=== PATIENT | male | born 1990 | race African-American/Black ===

== ENCOUNTER 2019-03-21 18:50 | Inpatient (IN) | payer OTHER ==
[2019-03-21 19:24] VITALS: BMI 23.1
[2019-03-21] MEDS ORDERED: MELATONIN 5 MG TABLETS PO PRN (22:00)
--- NOTE | 2019-03-21 22:31 | HP ---
COWS - Scale Resting Pulse: 0= [place] 80 or Below Sweatin= No chills or Flushing Restless Observation: 0= Sits Still Pupil Size: 0= Normal to Room Light Bone or Joint Aches: 0= None Runny Nose/ Eye Tearin= None GI Upset > 30mins: 0= None Tremor Observation: 0= None Yawning Observation: 0= None Anxiety or Irritability: 0= None Goose Flesh Skin: 0=Smooth Skin COWS Score: 0 CIWA Score - Admission Criteria OASAS Guidelines: Admission for Medically Managed Detox: Requires at least one of the followin. CIWA greater than 12 2. Seizures within the past 24 hours 3. Delirium tremens within the past 24 hours 4. Hallucinations within the past 24 hours 5. Acute intervention needed for co occurring medical disorder 6. Acute intervention needed for co occurring psychiatric disorder 7. Severe withdrawal that cannot be handled at a lower level of care (continued vomiting, continued diarrhea, abnormal vital signs) requiring intravenous medication and/or fluids 8. Admission ROS [facility] Chief Complaint: seeking heroin txment Allergies/Adverse Reactions: Allergies Allergy/AdvReac Type Severity Reaction Status Date / Time No Known Allergies Allergy Verified 03/21/19 19:19 History of Present Illness: HERE FOR HEROIN TXMENT. CLIENT IS REFERRED BY [facility] AFTER SEEKING DETOX BUT NO BEDS. PRESENTS WITH C/O INTERMITTENT SWEATS BUT DENIES ANY OTHER COMPLAINTS. UTOX NEG FOR OPI. CLIENT STATES LAST USED 2 DAYS AGO. HE ONLY USES HEROIN 3 X A WEEK APPROX 3 BAGS VIA SNIFF. DENIES IVDU. HE ALSO REPORTS PCP AND [facility]IZA DUST ABUSE. UTOX + FOR THC. DENIES HX/O DRUG OVERDOSE, BLACK OUTS, SEIZURES. DENIES ANY SIGNIFICANT CLEAN TIME. LIVES WITH FAMILY, UNEMPLOYED-HRA, DENIES LEGALS Exam Limitations: No Limitations - Ebola screening Have you traveled outside of the country in the last 21 days: No (N) Have you had contact with anyone from an Ebola affected area: No Have you been sick,other than usual withdrawal symptoms: No Do you have a fever: No - Review of Systems Constitutional: Chills, Loss of Appetite EENT: reports: No Symptoms Reported Respiratory: reports: No Symptoms reported Cardiac: reports: No Symptoms Reported GI: reports: Poor Appetite : reports: No Symptoms Reported Musculoskeletal: reports: No Symptoms Reported Integumentary: reports: No Symptoms Reported Neuro: reports: No Symptoms reported Endocrine: reports: No Symptoms Reported Hematology: reports: No Symptoms Reported Psychiatric: reports: Orientated x3, Depressed (DENIES SI) Other Systems: Reviewed and Negative Patient History - Patient Medical History Hx Anemia: No Hx Asthma: No Hx Chronic Obstructive Pulmonary Disease (COPD): No Hx Cancer: No Hx Cardiac Disorders: No Hx Congestive Heart Failure: No Hx Hypertension: No Hx Hypercholesterolemia: No Hx Pacemaker: No HX Cerebrovascular Accident: No Hx Seizures: No Hx Dementia: No Hx Diabetes: No Hx Gastrointestinal Disorders: No Hx Liver Disease: No Hx Genitourinary Disorders: No Hx Sexually Transmitted Disorders: No Hx Renal Disease (ESRD): No Hx Thyroid Disease: No Hx Human Immunodeficiency Virus (HIV): No Hx Hepatitis C: No Hx Depression: Yes Hx Suicide Attempt: No Hx Bipolar Disorder: No Hx Schizophrenia: Yes (PARANOID) Other Medical History: PTSD, EMOTIONALLY DISTURBED - Patient Surgical History Past Surgical History: No - PPD History Previous Implant?: Yes Documented Results: Negative w/o proof Implanted On Prior [facility] Admission?: No PPD to be Administered?: Yes - Smoking Cessation Smoking history: Current every day smoker Have you smoked in the past 12 months: Yes Aproximately how many cigarettes per day: 60 Cigars Per Day: 0 Hx Chewing Tobacco Use: No Initiated information on smoking cessation: Yes 'Breaking Loose' booklet given: 03/21/19 - Substance & Tx. History Hx Alcohol Use: No Hx Substance Use: Yes Substance Use Type: Heroin (UTOX NEG), Marijuana, Tranquilizers (PCC-UTOX NEG) Hx Substance Use Treatment: Yes ([facility]) - Substances abused Heroin Substance route: Inhalation Frequency: 3-6 times per week (3X WEEK) Amount used: 3 BAGS Age of first use: 26 Date of last use: 03/19/19 Other Other (specify): DUST/PCP Substance route: Smoking Frequency: 3-6 times per week (4 X WEEK) Amount used: $60/DAY Age of first use: 26 Date of last use: 03/19/19 Marijuana/Hashish Substance route: Smoking Frequency: Daily Amount used: $40 Age of first use: 15 Date of last use: 03/20/19 Admission Physical Exam [facility] - Vital Signs Vital Signs: Vital Signs - 24 hr 03/21/19 18:58 Temperature 98.1 F Pulse Rate 71 Respiratory 18 Rate Blood Pressure 146/91 - Physical General Appearance: Yes: Other (DEPESSED AFFECT) HEENTM: Yes: EOMI, Normocephalic, Normal Voice, BRYANT, Pharynx Normal Respiratory: Yes: Chest Non-Tender, Lungs Clear, Normal Breath Sounds, No Respiratory Distress, No Accessory Muscle Use Neck: Yes: No masses,lesions,Nodules, Supple, Trachea in good position Breast: Yes: Breasts Symetrical Cardiology: Yes: Regular Rhythm, Regular Rate, S1, S2 Abdominal: Yes: Normal Bowel Sounds, Non Tender, Flat, Soft Genitourinary: Yes: Within Normal Limits Back: Yes: Normal Inspection Musculoskeletal: Yes: full range of Motion, Gait Steady Extremities: Yes: Normal Capillary Refill, Normal Range of Motion, Non-Tender, Tremors Neurological: Yes: Fully Oriented, Alert, Motor Strength 5/5, Depressed Affect Integumentary: Yes: Cold (COOL), Clammy (PALMS) Lymphatic: Yes: Within Normal Limits - Diagnostic (1) Opioid abuse, uncomplicated Current Visit: Yes Status: Acute (2) PCP abuse Current Visit: Yes Status: Acute (3) Cannabis dependence, uncomplicated Current Visit: Yes Status: Acute (4) Psychiatric disorder Current Visit: Yes Status: Chronic Comment: PTSD, DEPRESSION, EMOTIONALLY DISTURBED, PANIC ATTACKS (5) Depressed affect Current Visit: Yes Status: Acute Cleared for Admission [facility] - Detox or Rehab Detox Regimen/Protocol: Not Applicable Claeared for Rehab Admission: Yes Breathalyzer - Breathalyzer Breathalyzer: 0 Urine Drug Screen - Test Device Lot number: [id number] Expiration date: 10/27/20 - Control Is test valid?: Yes - Results Drug screen NEGATIVE: No Urine drug screen results: THC-Marijuana Inpatient Rehab Admission - Rehab Decision to Admit Inpatient rehab admission?: Yes - Initial Determination Are CD services needed?: Yes Free of communicable disease: Yes Not in need of hospitalization: Yes - Rehab Admission Criteria Previous failed treatment: Yes Poor recovery environment: Yes Comorbidities: Yes Lacks judgement: No Patient is meeting Inpatient Rehab admission criteria:: Yes
[2019-03-21] MEDS ORDERED: MENTHOL/PHENOL 1 EACH UD MM PRN (22:42)
[2019-03-21] MEDS ORDERED: MAGNESIUM CITRATE 300 ML BOTTLE PO PRN (22:42)
[2019-03-21] MEDS ORDERED: ACETAMINOPHEN 325 MG TABLET (FP) PO PRN (22:42)
[2019-03-21] MEDS ORDERED: IBUPROFEN 400 MG TABLET (FP) PO PRN (22:42)
[2019-03-21] MEDS ORDERED: MAGNESIUM HYDROX 2400MG/30ML ORAL SUSPENSION 30 ML CUP PO PRN (22:42)
[2019-03-21] MEDS ORDERED: NICOTINE POLACRILEX 4 MG GUM BC PRN (22:42)
[2019-03-21] MEDS ORDERED: guaiFENesin 200 MG/10 ML 10 ML UNIT-DOSE CUPS PO PRN (22:42)
[2019-03-21] MEDS ORDERED: LOPERAMIDE HCL 2 MG CAPSULE PO PRN (22:42)
[2019-03-21] MEDS ORDERED: MAG HYDROX/AL HYDROX/SIMETH 30 ML UNIT-DOSE CUP PO PRN (22:42)
[2019-03-21] MEDS ORDERED: P-EPHED 60MG/TRIPROLIDI 2.5MG TABLET PO PRN (22:42)
[2019-03-21] MEDS ORDERED: cloNIDine HCL 0.1 MG TABLET PO PRN (22:43)
[2019-03-22] MEDS ORDERED: TUBERCULIN PPD 5 TU/0.1ML VIAL ID ONE (00:35)
[2019-03-22 06:59] VITALS: BP 125/83; PULSE 63; TEMP 97.9
--- NOTE | 2019-03-22 07:06 | CONSULT ---
[facility] Psychiatric Consult - Data Date of interview: 03/22/19 Admission source: [facility] Identifying data: Mr Jay is a 28 yeard old male, unemplooyed receving public assistance with history of Paranoid Schizophrenia, PTSD an Polysubsatnce use referred from [facility] on 03/21/19 for admission to inpatient rehabiitation for heroin, cannabis and phencyclidine Substance Abuse History: Reports history of heroin, marijuana and pcp use. Refer to addiction counselor's summary for further information Medical History: Unremarkable. Smokes cigarettes 3 ppd
[2019-03-22] MEDS: PRENATAL VITAMINS W/ FOLIC ACID TABLET (FP) PO SCH (10:06)
[2019-03-22] MEDS: NICOTINE 21 MG/24 HOURS TOPICAL PATCH TD SCH (10:06)
--- NOTE | 2019-03-22 10:17 | EKG ---
Test Reason : Blood Pressure : / mmHG Vent. Rate : 081 BPM Atrial Rate : 081 BPM P-R Int : 128 ms QRS Dur : 084 ms QT Int : 364 ms P-R-T Axes : 088 073 041 degrees QTc Int : 422 ms NORMAL SINUS RHYTHM NORMAL ECG NO PREVIOUS ECGS AVAILABLE Confirmed by Joel Naqvi MD ([id number]) on 03/22/2019 10:16:58 AM Referred By: Jamel Larios Confirmed By:Joel Naqvi MD
[2019-03-22 10:22] LABS: HEMATOCRIT 44.1 % (35.4-49); HEMOGLOBIN 14.4 GM/dL (11.7-16.9); MCH 31.9 pg (25.7-33.7); MCHC 32.6 g/dl (32.0-35.9); MEAN CELL VOLUME 97.8 fl (80-96); MEAN PLT VOLUME 9.8 fl (7.5-11.1); PLATELET COUNT 134 K/MM3 (134-434); RBC 4.51 M/mm3 (4.00-5.60); RDW 12.8 % (11.9-15.9); WHITE BLOOD COUNT 5.9 K/mm3 (4.0-10.0)
[2019-03-22 10:36] LABS: URINE APPEARANCE CLEAR; URINE BILIRUBIN NEGATIVE (NEGATIVE); URINE COLOR YELLOW; URINE GLUCOSE (UA) NEGATIVE (NEGATIVE); URINE KETONE TRACE (NEGATIVE); URINE LEUK ESTERASE NEGATIVE (NEGATIVE); URINE NITRITE NEGATIVE (NEGATIVE); URINE PROTEIN NEGATIVE (NEGATIVE); URINE UROBILINOGEN 0.2 mg/dL (0.2-1.0)
[2019-03-22 11:42] LABS: ALBUMIN 3.9 g/dl (3.4-5.0); BILIRUBIN,TOTAL 0.4 mg/dL (0.2-1); BLOOD UREA NITROGEN 18.1 mg/dL (7-18); CALCIUM 9.6 mg/dL (8.5-10.1); CREATININE 1.1 mg/dL (0.55-1.3); POTASSIUM 3.5 mmol/L (3.5-5.1); TOT PROT 7.4 g/dl (6.4-8.2)
[2019-03-22] MEDS: hydrOXYzine PAMOATE 50 MG CAPSULE (FP) PO PRN (19:42)
[2019-03-22] MEDS ORDERED: THIAMINE HCL 100 MG TABLET (FP) PO SCH (22:00)
[2019-03-23] MEDS: NICOTINE 21 MG/24 HOURS TOPICAL PATCH TD SCH (10:44)
[2019-03-23] MEDS: PRENATAL VITAMINS W/ FOLIC ACID TABLET (FP) PO SCH (10:44)
[2019-03-23] MEDS: hydrOXYzine PAMOATE 50 MG CAPSULE (FP) PO PRN (17:42)
--- NOTE | 2019-03-23 19:13 | DS ---
[facility] Rehab Discharge Summary - [facility] Rehab Discharge Summary Admission Date: 03/21/19 Discharge Date: 03/23/19 - History Additional Comments: Patient reports that he is leaving against medical advice. He reports hat he wants to go to his family because he miss them. Risks and consequences of his action reinforced. patient verbalized understanding of instructions.he is medical stable and his vital sins are stable. Pertinent Past History: Opioid abuse, cannabis dependence, PCP abuse and depression - Discharge Physical Exam Vital Signs: Vital Signs Temperature 97.9 F 03/22/19 06:58 Pulse Rate 63 03/22/19 06:58 Respiratory Rate 18 03/23/19 03:30 Blood Pressure 125/83 03/22/19 06:58 O2 Sat by Pulse Oximetry (%) Laboratory Last Values WBC 5.9 K/mm3 (4.0-10.0) 03/22/19 07:00 RBC 4.51 M/mm3 (4.00-5.60) 03/22/19 07:00 Hgb 14.4 GM/dL (11.7-16.9) 03/22/19 07:00 Hct 44.1 % (35.4-49) 03/22/19 07:00 MCV 97.8 fl (80-96) H 03/22/19 07:00 MCH 31.9 pg (25.7-33.7) 03/22/19 07:00 MCHC 32.6 g/dl (32.0-35.9) 03/22/19 07:00 RDW 12.8 % (11.9-15.9) 03/22/19 07:00 Plt Count 134 K/MM3 (134-434) 03/22/19 07:00 MPV 9.8 fl (7.5-11.1) 03/22/19 07:00 Sodium 140 mmol/L (136-145) 03/22/19 07:00 Potassium 3.5 mmol/L (3.5-5.1) 03/22/19 07:00 Chloride 104 mmol/L (98-107) 03/22/19 07:00 Carbon Dioxide 27 mmol/L (21-32) 03/22/19 07:00 Anion Gap 9 MMOL/L (8-16) 03/22/19 07:00 BUN 18.1 mg/dL (7-18) H 03/22/19 07:00 Creatinine 1.1 mg/dL (0.55-1.3) 03/22/19 07:00 Est GFR (CKD-EPI)AfAm 105.32 03/22/19 07:00 Est GFR (CKD-EPI)NonAf 90.87 03/22/19 07:00 Random Glucose 67 mg/dL (74-106) L 03/22/19 07:00 Calcium 9.6 mg/dL (8.5-10.1) 03/22/19 07:00 Total Bilirubin 0.4 mg/dL (0.2-1) 03/22/19 07:00 AST 21 U/L (15-37) 03/22/19 07:00 ALT 32 U/L (13-61) 03/22/19 07:00 Alkaline Phosphatase 79 U/L (45-117) 03/22/19 07:00 Total Protein 7.4 g/dl (6.4-8.2) 03/22/19 07:00 Albumin 3.9 g/dl (3.4-5.0) 03/22/19 07:00 Urine Color Yellow 03/22/19 08:39 Urine Appearance Clear 03/22/19 08:39 Urine pH 6.0 (5.0-8.0) 03/22/19 08:39 Ur Specific [place] 1.027 (1.010-1.035) 03/22/19 08:39 Urine Protein Negative (NEGATIVE) 03/22/19 08:39 Urine Glucose (UA) Negative (NEGATIVE) 03/22/19 08:39 Urine Ketones Trace (NEGATIVE) H 03/22/19 08:39 Urine Blood Negative (NEGATIVE) 03/22/19 08:39 Urine Nitrite Negative (NEGATIVE) 03/22/19 08:39 Urine Bilirubin Negative (NEGATIVE) 03/22/19 08:39 Urine Urobilinogen 0.2 mg/dL (0.2-1.0) 03/22/19 08:39 Ur Leukocyte Esterase Negative (NEGATIVE) 03/22/19 08:39 RPR Titer Nonreactive (NONREACTIVE) 03/22/19 07:00 Pertinent Admission Physical Exam Findings: Seeking admission to Rehab for Opioid, PCP and cannabis dependence - Medication Discharge Medications: Ambulatory Orders NK [No Known Home Medication] 12/23/19 - Medication-Assisted Treatment (MAT) Medication-Assisted Treatment (MAT): No - Discharge Instructions Diet, activity, other medical instructions: Diet: Activity: Other medical instructions: - Diagnosis (1) Cannabis dependence, uncomplicated Current Visit: Yes Status: Chronic (2) Depressed affect Current Visit: Yes Status: Chronic (3) Opioid abuse, uncomplicated Current Visit: Yes Status: Chronic (4) PCP abuse Current Visit: Yes Status: Chronic (5) Psychiatric disorder Current Visit: Yes Status: Chronic - AMA Did Patient Leave Against Medical Advice: Yes
== END 2019-03-23 07:10 | disposition left against medical advice (07) | DRG 770 ==
LOC: YASAS 18:50 → Y3W 23:12
PROVIDERS: ADMIT Neuromusculoskeletal Medicine & OMM; ATTEND Neuromusculoskeletal Medicine & OMM
PROC: HZ42ZZZ Group Counseling for Substance Abuse Treatment, Cognitive-Behavioral (ICD-10-PCS; principal; 2019-03-21)
DX: F11.10 Opioid abuse, uncomplicated (principal); F16.10 Hallucinogen abuse, uncomplicated; F12.20 Cannabis dependence, uncomplicated; F99 Mental disorder, not otherwise specified; F17.210 Nicotine dependence, cigarettes, uncomplicated
CPT/HCPCS: 36415; 80053; 81003; 85027; 86593; 93005; 93010; J0735

== ENCOUNTER 2020-01-11 14:03 | Inpatient (IN) | payer OTHER ==
--- OUTSIDE RECORDS SUMMARY | 2020-01-11 14:10 | XMS ---
:1990 Author Organization [facility] Support Name Relationship Address Phone AVERY CRUZ [address] [place] [address] UE Unavailable Unavailable Unavailable KENNEDI CRUZ SELF / SAME PATIENT [address] [place] [address] Re-disclosure Warning The records that you are about to access may contain information from federally- assisted alcohol or drug abuse programs. If such information is present, then the following federally mandated warning applies: This information has been disclosed to you from records protected by federal confidentiality rules (42 CFR part 2). The federal rules prohibit you from making any further disclosure of this information unless further disclosure is expressly permitted by the written consent of the person to whom it pertains or as otherwise permitted by 42 CFR part 2. A general authorization for the release of medical or other information is NOT sufficient for this purpose. The Federal rules restrict any use of the information to criminally investigate or prosecute any alcohol or drug abuse patient.The records that you are about to access may contain highly sensitive health information, the redisclosure of which is protected by Article 27-F of the [facility] Public Health law. If you continue you may haveaccess to information: Regarding HIV / AIDS; Provided by facilities licensed or operated by the [facility] Office of Mental Health; or Provided by the [facility] Office for People With Developmental Disabilities. If such information is present, then the following [facility] mandated warning applies: This information has been disclosed to you from confidential records which are protected by state law. State law prohibits you from making any further disclosure of this information without the specific written consent of the person to whom it pertains, or as otherwise permitted by law. Any unauthorized further disclosure in violation of state law may result in a fine or group home sentence or both. A general authorization for the release of medical or other information is NOT sufficient authorization for further disclosure. Insurance Providers Payer name Policy type Policy ID Covered Covered alliance party's Policy P sherri / Coverage alliance party ID relationship to Royal Inf ormation type royal KIKA [id number] CONRAD [id number] HEALTH NON CAP Results ID Date Data Source [id number] 12/06/2019 02:30:00 PM EDT [facility] Name Value Range Interpretation Description Data Sup porting Code Source(s) Document(s ) SARS-CoV-2 [facility] (COVID-19) RNA panel - Unspecified specimen by ALENA with probe detection This lab was ordered by [facility] and reported by [facility]. ID Date Data Source [id number] 11/10/2019 09:09:00 AM EDT [facility] Name Value Range Interpretation Description Data Sup porting Code Source(s) Document(s ) 2019 Novel [facility] Coronavirus RNA Interpretation Unspecified Specimen Qualitative ALENA Probe Detection This lab was ordered by [email or web address] [id number] and [facility] by [email or web address]. ID Date Data Source [id number] 11/01/2019 10:00:00 AM EDT [facility] Name Value Range Interpretation Code Description Data Natalya rce(s) Supporting Document(s ) SARS-COV-2 [facility] PCR This lab was ordered by [facility] and reported by [facility]. ID Date Data Source [id number] 08/20/2019 12:00:00 AM EDT [facility] Name Value Range Interpretation Code Description Data Natalya rce(s) Supporting Document(s ) 2019-nCoV [facility] RNA XXX ALENA+probe- Imp This lab was ordered by [facility] and rep orted by [facility]. Procedure
--- NOTE | 2020-01-11 14:32 | BHS.RME ---
Substance Use & Tx History - Substance Use History Alcohol Substance amount: one liter Vodka Frequency of use: Daily Substance route: Oral Date of Last Use: 01/10/20 Heroin Substance amount: 5-10 bags Frequency of use: Daily Substance route: Inhalation (ex: sniffing or snorting) Date of Last Use: 01/10/20 Marijuana/Hashish Substance amount: 5-10 bags Frequency of use: Daily Substance route: Smoking Date of Last Use: 01/10/20 PCP Substance amount: 5-10 bags Frequency of use: Daily Substance route: Smoking Date of Last Use: 01/10/20 Physical/Psych/Mental Status - Behavior General Behavior: Decreased activity Eye Contact: Normal - Cooperativeness Cooperativeness: Cooperative - Thinking Thought Processes: Tight Thought content: Future oriented - Physical Health Problems Is patient presently having any pain?: Yes (aches diffuse) Does patient presently have any injuries (include location): No Does patient currently have a fever: No COWS - Scale Resting Pulse: 1= [place] 81-100 Sweatin=Flushed/Facial Moisture Restless Observation: 0= Sits Still Pupil Size: 0= Normal to Room Light Bone or Joint Aches: 1= Mild Discomfort Runny Nose/ Eye Tearin= Runny Nose/Eyes GI Upset > 30mins: 0= None Tremor Observation: 0= None Yawning Observation: 0= None Anxiety or Irritability: 2=Irritable/Anxious Goose Flesh Skin: 0=Smooth Skin COWS Score: 8 CIWA Nausea/Vomitin-No Nausea/No Vomiting Muscle Tremors: None Anxiety: 4-Mod. Anxious/Guarded Agitation: 1-Slight > Activity Paroxysmal Sweats: 3 Orientation: 1-Uncertain about Date Tacttile Disturbances: 0-None Auditory Disturbances: 0-None Visual Disturbances: 3-Moderate Sensitivity Headache: 0-None Present CIWA-Ar Total Score: 12
[2020-01-11 15:35] VITALS: BMI 26.6
--- NOTE | 2020-01-11 15:47 | HP ---
CIWA Score - Admission Criteria OASAS Guidelines: Admission for Medically Managed Detox: Requires at least one of the followin. CIWA greater than 12 2. Seizures within the past 24 hours 3. Delirium tremens within the past 24 hours 4. Hallucinations within the past 24 hours 5. Acute intervention needed for co occurring medical disorder 6. Acute intervention needed for co occurring psychiatric disorder 7. Severe withdrawal that cannot be handled at a lower level of care (continued vomiting, continued diarrhea, abnormal vital signs) requiring intravenous medication and/or fluids 8. Admitting History and Physical - Admission History of Present Illness: Pt is a 29 yo M presenting for rehab; "for recovery and to stay clean." Pt completed detox at [facility] prior to arrival (was discharged on 01/08; at home for one day). Pt was last here in 03/21-03/24/2019 for rehab; left AMA. Pt reports willingness to sign contract for completion. Pt reports no period of time after leaving that he was sober; pt reports he was "right back at it, as soon as I left." Pt reports "stress" and "being around users" as triggers. Pt reports being in the suboxone program at [facility]; but hasn't been to suboxone program for 3-4 weeks. PMH, PSH - none Psych - none dx; expresses suffering from anxiety (also reports "self diagnosis" of PTSD) Soc/Domiciled - Lives with in [place] - none - Substance Use History Alcohol Substance amount: one liter Vodka Frequency of use: Daily Substance route: Oral Date of Last Use: 01/10/20 Heroin Substance amount: 5-10 bags Frequency of use: Daily Substance route: Inhalation (ex: sniffing or snorting) Date of Last Use: 01/10/20 Marijuana/Hashish Substance amount: 5-10 bags Frequency of use: Daily Substance route: Smoking Date of Last Use: 01/10/20 PCP Substance amount: 5-10 bags Frequency of use: Daily Substance route: Smoking Date of Last Use: 01/10/20 History Source: Patient Limitations to Obtaining History: No Limitations - Past Surgical History Past Surgical History: Yes: None - Smoking History Smoking history: Current every day smoker Have you smoked in the past 12 months: Yes Aproximately how many cigarettes per day: 60 - Alcohol/Substance Use Hx Alcohol Use: No History of Substance Use: reports: Marijuana - Social History ADL: Independent Occupation: maintenance [employer] History of Recent Travel: No Admission ROS S - HPI Allergies/Adverse Reactions: Allergies Allergy/AdvReac Type Severity Reaction Status Date / Time No Known Allergies Allergy Verified 01/11/20 15:29 - Ebola screening Have you traveled outside of the country in the last 21 days: No Have you been sick,other than usual withdrawal symptoms: No Do you have a fever: No - Review of Systems Constitutional: No Symptoms Reported (far sighted - with glasses) EENT: reports: Blurred Vision Respiratory: reports: No Symptoms reported Cardiac: reports: No Symptoms Reported GI: reports: No Symptoms Reported : reports: No Symptoms Reported Musculoskeletal: reports: No Symptoms Reported Integumentary: reports: No Symptoms Reported Neuro: reports: No Symptoms reported Endocrine: reports: No Symptoms Reported Hematology: reports: No Symptoms Reported Psychiatric: reports: Anxious (mild), Depressed (mild depression (no SI/HI); no SAs previously; pt reports he is greiving as it is within the first year of mom's ) Patient History - Patient Medical History Hx Anemia: No Hx Asthma: No Hx Chronic Obstructive Pulmonary Disease (COPD): No Hx Cancer: No Hx Cardiac Disorders: No Hx Congestive Heart Failure: No Hx Hypertension: No Hx Hypercholesterolemia: No Hx Pacemaker: No HX Cerebrovascular Accident: No Hx Seizures: No Hx Dementia: No Hx Diabetes: No Hx Gastrointestinal Disorders: No Hx Liver Disease: No Hx Genitourinary Disorders: No Hx Sexually Transmitted Disorders: No Hx Renal Disease (ESRD): No Hx Thyroid Disease: No Hx Human Immunodeficiency Virus (HIV): No Hx Hepatitis C: No Hx Depression: Yes Hx Suicide Attempt: No Hx Bipolar Disorder: No Hx Schizophrenia: Yes - Patient Surgical History Past Surgical History: No Hx Neurologic Surgery: No Hx Cataract Extraction: No Hx Cardiac Surgery: No Hx Lung Surgery: No Hx Breast Surgery: No Hx Breast Biopsy: No Hx Abdominal Surgery: No Hx Appendectomy: No Hx Cholecystectomy: No Hx Genitourinary Surgery: No Hx Section: No Hx Orthopedic Surgery: No Anesthesia Reaction: No - PPD History Previous Implant?: Yes Documented Results: Negative w/proof Implanted On Prior R Admission?: No Date: 03/24/19 Results: negative - Reproductive History Patient : (n/a) - Smoking Cessation Smoking history: Current every day smoker Have you smoked in the past 12 months: Yes Aproximately how many cigarettes per day: 20 Cigars Per Day: 0 Hx Chewing Tobacco Use: No Initiated information on smoking cessation: Yes 'Breaking Loose' booklet given: 01/11/20 Admission Physical Exam [facility] - Vital Signs Vital Signs: Vital Signs - 24 hr 01/11/20 15:32 Temperature 98.1 F Pulse Rate 98 H Respiratory 20 Rate Blood Pressure 150/71 - Physical General Appearance: Yes: No Apparent Distress, Nourished, Appropriately Dressed, Anxious (mild) HEENTM: Yes: EOMI, Hearing grossly Normal, Normocephalic, Normal Voice Respiratory: Yes: Lungs Clear, Normal Breath Sounds, No Respiratory Distress, No Accessory Muscle Use Neck: Yes: No masses,lesions,Nodules, Supple, Trachea in good position Breast: Yes: Breast Exam Deferred Cardiology: Yes: Regular Rhythm, Regular Rate Abdominal: Yes: Normal Bowel Sounds, Non Tender, Flat, Soft Genitourinary: Yes: Other (deferred) Back: Yes: Normal Inspection Musculoskeletal: Yes: full range of Motion, Gait Steady Extremities: Yes: Normal Inspection, Normal Range of Motion, Non-Tender Neurological: Yes: Fully Oriented, Alert, Motor Strength 5/5, Normal Mood/Affect Integumentary: Yes: Normal Color, Dry, Warm - Diagnostic (1) Cannabis dependence, uncomplicated Current Visit: Yes Status: Acute (2) Depressed affect Current Visit: No Status: Chronic (3) Opioid abuse, uncomplicated Current Visit: Yes Status: Chronic (4) PCP abuse Current Visit: Yes Status: Chronic (5) Alcohol dependence Current Visit: Yes Status: Chronic Qualifiers: Substance use status: uncomplicated Qualified Code(s): F10.20 - Alcohol dependence, uncomplicated Cleared for Admission [facility] - Detox or Rehab [facility] Level of Care: Medically Supervised Breathalyzer - Breathalyzer Breathalyzer: 0 Urine Drug Screen - Test Device Lot number: [id number] Expiration date: 07/05/21 - Control Is test valid?: Yes - Results Drug screen NEGATIVE: No Urine drug screen results: BZO-Benzodiazepines Inpatient Rehab Admission - Rehab Decision to Admit Inpatient rehab admission?: Yes - Initial Determination Are CD services needed?: No Free of communicable disease: No Not in need of hospitalization: No - Rehab Admission Criteria Previous failed treatment: No Poor recovery environment: No Comorbidities: No Lacks judgement: No Patient is meeting Inpatient Rehab admission criteria:: No
[2020-01-11] MEDS ORDERED: MAG HYDROX/AL HYDROX/SIMETH 30 ML UNIT-DOSE CUP PO PRN (16:39)
[2020-01-11] MEDS ORDERED: P-EPHED 60MG/TRIPROLIDI 2.5MG TABLET PO PRN (16:39)
[2020-01-11] MEDS ORDERED: NICOTINE POLACRILEX 2 MG GUM BC PRN (16:39)
[2020-01-11] MEDS ORDERED: IBUPROFEN 400 MG TABLET (FP) PO PRN (16:39)
[2020-01-11] MEDS ORDERED: LOPERAMIDE HCL 2 MG CAPSULE PO PRN (16:39)
[2020-01-11] MEDS ORDERED: MAGNESIUM CITRATE 300 ML BOTTLE PO PRN (16:39)
[2020-01-11] MEDS ORDERED: guaiFENesin 200 MG/10 ML 10 ML UNIT-DOSE CUPS PO PRN (16:39)
[2020-01-11] MEDS ORDERED: ACETAMINOPHEN 325 MG TABLET (FP) PO PRN (16:39)
[2020-01-11] MEDS ORDERED: MAGNESIUM HYDROX 2400MG/30ML ORAL SUSPENSION 30 ML CUP PO PRN (16:39)
[2020-01-11] MEDS: NICOTINE 21 MG/24 HOURS TOPICAL PATCH TD SCH (19:15)
[2020-01-11] MEDS: hydrOXYzine PAMOATE 25 MG CAPSULE (FP) PO SCH ×2 (19:18→21:23)
[2020-01-11] MEDS: MELATONIN 5 MG TABLETS PO SCH (21:23)
[2020-01-11] MEDS: THIAMINE HCL 100 MG TABLET (FP) PO SCH (21:24)
[2020-01-12] MEDS: hydrOXYzine PAMOATE 25 MG CAPSULE (FP) PO SCH ×3 (06:52→13:02)
--- NOTE | 2020-01-12 09:23 | PN ---
Teaching Attending Note Name of Resident: Caleb Nguyen ATTENDING PHYSICIAN STATEMENT I saw and evaluated the patient. I reviewed the resident's note and discussed the case with the resident. I agree with the resident's findings and plan as documented. SUBJECTIVE: OBJECTIVE: ASSESSMENT AND PLAN: 1. Cannabis use disorder 2. Opioid use disorder 3. PCP use disorder Plan 1. Rehab admission
[2020-01-12 10:08] LABS: HEMATOCRIT 43.9 % (35.4-49); HEMOGLOBIN 14.3 GM/dL (11.7-16.9); MCH 31.7 pg (25.7-33.7); MCHC 32.7 g/dl (32.0-35.9); MEAN CELL VOLUME 97.1 fl (80-96); MEAN PLT VOLUME 10.5 fl (7.5-11.1); PLATELET COUNT 150 K/MM3 (134-434); RBC 4.52 M/mm3 (4.00-5.60); RDW 12.4 % (11.9-15.9); WHITE BLOOD COUNT 6.6 K/mm3 (4.0-10.0)
[2020-01-12 10:22] LABS: SICKLE CELL SCREEN NEGATIVE (NEGATIVE)
[2020-01-12 10:36] LABS: ALBUMIN 4.1 g/dl (3.4-5.0); BILIRUBIN,TOTAL 0.4 mg/dL (0.2-1); BLOOD UREA NITROGEN 21.1 mg/dL (7-18); CALCIUM 9.2 mg/dL (8.5-10.1); CREATININE 1.3 mg/dL (0.55-1.3); TOT PROT 7.9 g/dl (6.4-8.2)
[2020-01-12] MEDS: PRENATAL VITAMINS W/ FOLIC ACID TABLET (FP) PO SCH (10:45)
[2020-01-12] MEDS: NICOTINE 21 MG/24 HOURS TOPICAL PATCH TD SCH (10:46)
[2020-01-12] MEDS: MELATONIN 5 MG TABLETS PO SCH (21:15)
[2020-01-12] MEDS: hydrOXYzine PAMOATE 25 MG CAPSULE (FP) PO PRN (21:15)
[2020-01-12] MEDS: THIAMINE HCL 100 MG TABLET (FP) PO SCH (21:16)
[2020-01-13] MEDS: PRENATAL VITAMINS W/ FOLIC ACID TABLET (FP) PO SCH (09:57)
[2020-01-13] MEDS: NICOTINE 21 MG/24 HOURS TOPICAL PATCH TD SCH (09:57)
[2020-01-13] MEDS: hydrOXYzine PAMOATE 25 MG CAPSULE (FP) PO PRN ×2 (09:57→21:33)
[2020-01-13] MEDS: MELATONIN 5 MG TABLETS PO SCH (21:33)
[2020-01-13] MEDS: THIAMINE HCL 100 MG TABLET (FP) PO SCH (21:33)
[2020-01-14 07:27] VITALS: PULSE 70
[2020-01-14] MEDS: NICOTINE 21 MG/24 HOURS TOPICAL PATCH TD SCH (11:01)
[2020-01-14] MEDS: PRENATAL VITAMINS W/ FOLIC ACID TABLET (FP) PO SCH (11:01)
[2020-01-14] MEDS: hydrOXYzine PAMOATE 25 MG CAPSULE (FP) PO PRN ×2 (17:15→21:26)
[2020-01-14] MEDS: MELATONIN 5 MG TABLETS PO SCH (21:26)
[2020-01-14] MEDS: THIAMINE HCL 100 MG TABLET (FP) PO SCH (21:26)
[2020-01-15] MEDS ORDERED: MASKS NR ONE (07:08)
[2020-01-15 07:23] VITALS: BP 120/82; TEMP 97.5
[2020-01-15] MEDS: NICOTINE 21 MG/24 HOURS TOPICAL PATCH TD SCH (10:54)
[2020-01-15] MEDS: PRENATAL VITAMINS W/ FOLIC ACID TABLET (FP) PO SCH (10:54)
[2020-01-15 14:21] LABS: PH,URINE 5.5 (5.0-8.0); URINE APPEARANCE CLEAR; URINE BILIRUBIN NEGATIVE (NEGATIVE); URINE COLOR YELLOW; URINE GLUCOSE (UA) NEGATIVE (NEGATIVE); URINE KETONE NEGATIVE (NEGATIVE); URINE LEUK ESTERASE NEGATIVE (NEGATIVE); URINE NITRITE NEGATIVE (NEGATIVE); URINE PROTEIN NEGATIVE (NEGATIVE); URINE UROBILINOGEN 0.2 mg/dL (0.2-1.0)
--- NOTE | 2020-01-15 15:51 | DS ---
[facility] Rehab Discharge Summary - [facility] Rehab Discharge Summary Admission Date: 01/11/20 Discharge Date: 01/15/20 - History Present History: Alcohol dependence, Cannabis dependence, Opioid dependence, PCP dependence - Discharge Physical Exam Vital Signs: Vital Signs Temperature 97.5 F L 01/15/20 06:57 Pulse Rate 70 01/15/20 06:57 Respiratory Rate 18 01/15/20 06:57 Blood Pressure 120/82 01/15/20 06:57 O2 Sat by Pulse Oximetry (%) 96 01/15/20 15:35 Pertinent Admission Physical Exam Findings: Laboratory Last Values WBC 6.6 K/mm3 (4.0-10.0) 01/11/20 07:00 RBC 4.52 M/mm3 (4.00-5.60) 01/11/20 07:00 Hgb 14.3 GM/dL (11.7-16.9) 01/11/20 07:00 Hct 43.9 % (35.4-49) 01/11/20 07:00 MCV 97.1 fl (80-96) H 01/11/20 07:00 MCH 31.7 pg (25.7-33.7) 01/11/20 07:00 MCHC 32.7 g/dl (32.0-35.9) 01/11/20 07:00 RDW 12.4 % (11.9-15.9) 01/11/20 07:00 Plt Count 150 K/MM3 (134-434) 01/11/20 07:00 MPV 10.5 fl (7.5-11.1) 01/11/20 07:00 Sickle Cell Screen Negative (NEGATIVE) 01/11/20 07:00 Sodium 140 mmol/L (136-145) 01/11/20 07:00 Potassium 4.0 mmol/L (3.5-5.1) 01/11/20 07:00 Chloride 105 mmol/L (98-107) 01/11/20 07:00 Carbon Dioxide 30 mmol/L (21-32) 01/11/20 07:00 Anion Gap 6 MMOL/L (8-16) L 01/11/20 07:00 BUN 21.1 mg/dL (7-18) H 01/11/20 07:00 Creatinine 1.3 mg/dL (0.55-1.3) 01/11/20 07:00 Est GFR (CKD-EPI)AfAm 85.46 01/11/20 07:00 Est GFR (CKD-EPI)NonAf 73.73 01/11/20 07:00 Random Glucose 120 mg/dL (74-106) H 01/11/20 07:00 Calcium 9.2 mg/dL (8.5-10.1) 01/11/20 07:00 Total Bilirubin 0.4 mg/dL (0.2-1) 01/11/20 07:00 AST 23 U/L (15-37) 01/11/20 07:00 ALT 25 U/L (13-61) 01/11/20 07:00 Alkaline Phosphatase 66 U/L (45-117) 01/11/20 07:00 Total Protein 7.9 g/dl (6.4-8.2) 01/11/20 07:00 Albumin 4.1 g/dl (3.4-5.0) 01/11/20 07:00 Urine Color Yellow 01/15/20 Unknown Urine Appearance Clear 01/15/20 Unknown Urine pH 5.5 (5.0-8.0) 01/15/20 Unknown Ur Specific [place] 1.016 (1.010-1.035) 01/15/20 Unknown Urine Protein Negative (NEGATIVE) 01/15/20 Unknown Urine Glucose (UA) Negative (NEGATIVE) 01/15/20 Unknown Urine Ketones Negative (NEGATIVE) 01/15/20 Unknown Urine Blood Negative (NEGATIVE) 01/15/20 Unknown Urine Nitrite Negative (NEGATIVE) 01/15/20 Unknown Urine Bilirubin Negative (NEGATIVE) 01/15/20 Unknown Urine Urobilinogen 0.2 mg/dL (0.2-1.0) 01/15/20 Unknown Ur Leukocyte Esterase Negative (NEGATIVE) 01/15/20 Unknown Syphilis Serology Non-reactive (NONREACTIVE) 01/11/20 07:00 HIV Ag/Ab Combo Qual Negative (NEGATIVE) 01/11/20 07:00 SARS-CoV-2 (PCR) Negative (Negative) 01/11/20 15:30 - Medication Discharge Medications: Ambulatory Orders NK [No Known Home Medication] 03/21/19 - Medication-Assisted Treatment (MAT) Medication-Assisted Treatment (MAT): No - Discharge Instructions Diet, activity, other medical instructions: Diet: No restriction Activity: No restrictions Other medical instructions: Follow up with PCP - Diagnosis (1) Cannabis dependence, uncomplicated Current Visit: Yes Status: Acute (2) Alcohol dependence Current Visit: Yes Status: Chronic Qualifiers: Substance use status: uncomplicated Qualified Code(s): F10.20 - Alcohol dependence, uncomplicated (3) Opioid abuse, uncomplicated Current Visit: Yes Status: Chronic (4) PCP abuse Current Visit: Yes Status: Chronic (5) Depressed affect Current Visit: No Status: Chronic - AMA Did Patient Leave Against Medical Advice: No Additional Comments: Early discharge-Patient refused to wait to be seen by ticket writer
== END 2020-01-15 15:15 | disposition home or self-care (01) | DRG 772 ==
LOC: YASAS 14:03 → Y6N 15:50 → Y5N 18:45
PROVIDERS: ADMIT Allergy & Immunology; ATTEND Allergy & Immunology
PROC: HZ42ZZZ Group Counseling for Substance Abuse Treatment, Cognitive-Behavioral (ICD-10-PCS; principal; 2020-01-11)
DX: F10.20 Alcohol dependence, uncomplicated (principal); F11.20 Opioid dependence, uncomplicated; F16.20 Hallucinogen dependence, uncomplicated; F12.20 Cannabis dependence, uncomplicated; F17.210 Nicotine dependence, cigarettes, uncomplicated; F20.9 Schizophrenia, unspecified; F41.9 Anxiety disorder, unspecified; F32.9 Major depressive disorder, single episode, unspecified; R45.89 Other symptoms and signs involving emotional state
CPT/HCPCS: 36415; 80053; 81003; 85027; 85660; 86780; 87389; C9803; U0003

== ENCOUNTER 2021-08-16 12:10 | Inpatient (IN) | payer OTHER ==
[2021-08-16] MEDS ORDERED: BISMUTH SUBSALICYLATE 524 MG/30 ML PO PRN (12:59)
[2021-08-16] MEDS ORDERED: IBUPROFEN 400 MG TABLET (FP) PO PRN (12:59)
[2021-08-16] MEDS ORDERED: ONDANSETRON *ODT* 4 MG TABLET SL PRN (12:59)
[2021-08-16] MEDS ORDERED: ACETAMINOPHEN 325 MG TABLET (FP) PO PRN ×2 (12:59)
[2021-08-16] MEDS ORDERED: BENZOCAINE/MENTHOL (CHLORASEPTIC ) LOZENGE MM PRN (12:59)
[2021-08-16] MEDS ORDERED: chlordiazePOXIDE HCL 25 MG CAPSULE PO PRN (12:59)
[2021-08-16] MEDS ORDERED: MAGNESIUM HYDROX 2400MG/30ML ORAL SUSPENSION 30 ML CUP PO PRN (12:59)
[2021-08-16] MEDS ORDERED: NICOTINE 10 MG CARTRIDGE (INHALER) IH PRN (12:59)
[2021-08-16] MEDS ORDERED: DICYCLOMINE HCL 10 MG CAPSULE PO PRN (12:59)
[2021-08-16] MEDS ORDERED: LOPERAMIDE HCL 2 MG CAPSULE PO PRN (12:59)
[2021-08-16] MEDS ORDERED: MAG HYDROX/AL HYDROX/SIMETH 30 ML UNIT-DOSE CUP PO PRN (12:59)
[2021-08-16] MEDS ORDERED: MAGNESIUM CITRATE 300 ML BOTTLE PO PRN (12:59)
[2021-08-16 13:19] VITALS: BMI 22.4
[2021-08-16] MEDS: hydrOXYzine PAMOATE 25 MG CAPSULE (FP) PO SCH ×3 (14:06→23:01)
[2021-08-16] MEDS: METHOCARBAMOL 500 MG TABLET PO PRN (14:06)
[2021-08-16] MEDS: PRENATAL VITAMINS W/ FOLIC ACID TABLET (FP) PO SCH (14:29)
[2021-08-16] MEDS: NICOTINE 21 MG/24 HOURS TOPICAL PATCH TD SCH (14:30)
[2021-08-16] MEDS: chlordiazePOXIDE HCL 25 MG CAPSULE PO SCH ×2 (18:32→23:01)
[2021-08-16] MEDS ORDERED: cloNIDine HCL 0.1 MG TABLET PO ONE (18:44)
[2021-08-16] MEDS: MELATONIN 5 MG TABLETS PO SCH (23:01)
[2021-08-16] MEDS: THIAMINE HCL 100 MG TABLET (FP) PO SCH (23:01)
[2021-08-17] MEDS: hydrOXYzine PAMOATE 25 MG CAPSULE (FP) PO SCH ×5 (06:15→22:23)
[2021-08-17] MEDS: chlordiazePOXIDE HCL 25 MG CAPSULE PO SCH ×4 (06:15→22:22)
[2021-08-17] MEDS: NICOTINE 21 MG/24 HOURS TOPICAL PATCH TD SCH (11:04)
[2021-08-17] MEDS: PRENATAL VITAMINS W/ FOLIC ACID TABLET (FP) PO SCH (11:04)
[2021-08-17 13:48] LABS: HEMATOCRIT 43.7 % (35.4-49); HEMOGLOBIN 14.2 GM/dL (11.7-16.9); MCH 31.6 pg (25.7-33.7); MCHC 32.6 g/dl (32.0-35.9); MEAN CELL VOLUME 96.9 fl (80-96); MEAN PLT VOLUME 9.5 fl (7.5-11.1); PLATELET COUNT 127 10^3/uL (134-434); RBC 4.51 M/mm3 (4.00-5.60)
[2021-08-17 13:54] LABS: ALBUMIN 3.7 g/dl (3.4-5.0); CALCIUM 9.1 mg/dL (8.5-10.1)
[2021-08-17 13:56] LABS: CREATININE 0.9 mg/dL (0.55-1.3)
[2021-08-17 13:57] LABS: TOT PROT 7.3 g/dl (6.4-8.2)
[2021-08-17 14:11] LABS: BILIRUBIN,TOTAL 0.4 mg/dL (0.2-1)
[2021-08-17] MEDS: MELATONIN 5 MG TABLETS PO SCH (22:23)
[2021-08-17] MEDS: THIAMINE HCL 100 MG TABLET (FP) PO SCH (22:23)
[2021-08-18] MEDS: chlordiazePOXIDE HCL 25 MG CAPSULE PO SCH ×4 (05:30→23:40)
[2021-08-18] MEDS: hydrOXYzine PAMOATE 25 MG CAPSULE (FP) PO SCH ×4 (05:30→17:28)
[2021-08-18] MEDS: PRENATAL VITAMINS W/ FOLIC ACID TABLET (FP) PO SCH (10:26)
[2021-08-18] MEDS: NICOTINE 21 MG/24 HOURS TOPICAL PATCH TD SCH (10:27)
[2021-08-18 14:07] LABS: SARS-CoV-2 NAA Not Detected (Not Detected)
[2021-08-19] MEDS ORDERED: chlordiazePOXIDE HCL 10 MG CAPSULE PO PRN
[2021-08-19] MEDS: hydrOXYzine PAMOATE 25 MG CAPSULE (FP) PO SCH ×6 (00:03→22:26)
[2021-08-19] MEDS: THIAMINE HCL 100 MG TABLET (FP) PO SCH ×2 (00:03→22:26)
[2021-08-19] MEDS: MELATONIN 5 MG TABLETS PO SCH ×2 (00:03→22:26)
[2021-08-19] MEDS: chlordiazePOXIDE HCL 10 MG CAPSULE PO SCH ×4 (05:57→22:26)
[2021-08-19] MEDS: PRENATAL VITAMINS W/ FOLIC ACID TABLET (FP) PO SCH (10:19)
[2021-08-19] MEDS: NICOTINE 21 MG/24 HOURS TOPICAL PATCH TD SCH (10:19)
[2021-08-19] MEDS: METHOCARBAMOL 500 MG TABLET PO PRN (22:26)
[2021-08-20] MEDS: chlordiazePOXIDE HCL 10 MG CAPSULE PO SCH ×2 (06:25→17:41)
[2021-08-20] MEDS: hydrOXYzine PAMOATE 25 MG CAPSULE (FP) PO SCH ×5 (06:25→22:45)
[2021-08-20] MEDS: PRENATAL VITAMINS W/ FOLIC ACID TABLET (FP) PO SCH (11:20)
[2021-08-20] MEDS: NICOTINE 21 MG/24 HOURS TOPICAL PATCH TD SCH (11:20)
[2021-08-20] MEDS: NALTREXONE HCL 50 MG TABLET PO SCH (18:26)
[2021-08-20] MEDS: THIAMINE HCL 100 MG TABLET (FP) PO SCH (22:45)
[2021-08-20] MEDS: MELATONIN 5 MG TABLETS PO SCH (22:46)
[2021-08-21] MEDS ORDERED: chlordiazePOXIDE HCL 10 MG CAPSULE PO ONE (05:00)
[2021-08-21] MEDS: hydrOXYzine PAMOATE 25 MG CAPSULE (FP) PO SCH ×2 (05:21→10:51)
[2021-08-21 09:15] VITALS: BP 128/55; PULSE 103; TEMP 98.1
[2021-08-21] MEDS: NICOTINE 21 MG/24 HOURS TOPICAL PATCH TD SCH (10:51)
[2021-08-21] MEDS: PRENATAL VITAMINS W/ FOLIC ACID TABLET (FP) PO SCH (10:51)
[2021-08-21] MEDS: NALTREXONE HCL 50 MG TABLET PO SCH (10:51)
== END 2021-08-21 10:58 | disposition other institution (70) | DRG 774 ==
LOC: YASAS 12:10 → Y6N 13:17
PROVIDERS: ADMIT Allergy & Immunology; ATTEND Surgery
PROC: HZ2ZZZZ Detoxification Services for Substance Abuse Treatment (ICD-10-PCS; principal; 2021-08-16)
DX: F14.20 Cocaine dependence, uncomplicated (principal); F16.10 Hallucinogen abuse, uncomplicated; F12.20 Cannabis dependence, uncomplicated; F17.210 Nicotine dependence, cigarettes, uncomplicated
CPT/HCPCS: 36415; 80053; 85027; 86780; 93005; 93010; C9803-CS; J0735; Q0162; U0003; U0005

== ENCOUNTER 2023-10-07 11:33 | Inpatient (IN) | payer OTHER ==
[2023-10-07 12:08] VITALS: BMI 22.1
[2023-10-07] MEDS ORDERED: IBUPROFEN 400 MG TABLET (FP) PO PRN (12:44)
[2023-10-07] MEDS ORDERED: NALOXONE HCL 0.4 MG/ML VIAL IM PRN (12:44)
[2023-10-07] MEDS ORDERED: BENZONATATE 200 MG CAPSULE PO PRN (12:44)
[2023-10-07] MEDS ORDERED: NALOXONE (NARCAN) HCL 4 MG/0.1 ML SPRAY NS PRN (12:44)
[2023-10-07] MEDS ORDERED: guaiFENesin 600 MG TABLET.ER (FP) PO PRN (12:44)
[2023-10-07] MEDS ORDERED: MAGNESIUM HYDROX 2400MG/30ML ORAL SUSPENSION 30 ML CUP PO PRN (12:44)
[2023-10-07] MEDS ORDERED: ONDANSETRON *ODT* 4 MG TABLET SL PRN (12:44)
[2023-10-07] MEDS ORDERED: MAG HYDROX/AL HYDROX/SIMETH 30 ML UNIT-DOSE CUP PO PRN (12:44)
[2023-10-07] MEDS ORDERED: LOPERAMIDE HCL 2 MG CAPSULE PO PRN (12:44)
[2023-10-07] MEDS ORDERED: diazePAM 5 MG TABLET PO PRN (12:44)
[2023-10-07] MEDS ORDERED: BISMUTH SUBSALICYLATE 262 MG/15 ML BTL PO PRN (12:44)
[2023-10-07] MEDS ORDERED: DICYCLOMINE HCL 10 MG CAPSULE PO PRN (12:44)
[2023-10-07] MEDS ORDERED: POLYETHYLENE GLYCOL (HEALTHYLAX) 3350 17 GM PACKET PO PRN (12:44)
[2023-10-07] MEDS ORDERED: BENZOCAINE/MENTHOL (CHLORASEPTIC ) LOZENGE MM PRN (12:44)
[2023-10-07] MEDS ORDERED: PRENATAL VITAMINS W/ FOLIC ACID TABLET (FP) PO ONE (13:12)
[2023-10-07] MEDS ORDERED: NICOTINE 14 MG/24 HOURS TOPICAL PATCH TD ONE (13:12)
[2023-10-07] MEDS: NICOTINE 14 MG/24 HOURS TOPICAL PATCH TD SCH (13:15)
[2023-10-07] MEDS: PRENATAL VITAMINS W/ FOLIC ACID TABLET (FP) PO SCH (13:15)
[2023-10-07] MEDS: diazePAM 5 MG TABLET PO SCH (17:55)
[2023-10-07] MEDS: IBUPROFEN 600 MG TABLET (FP) PO PRN (17:57)
[2023-10-07] MEDS: THIAMINE 100 MG TABLET PO SCH (23:05)
[2023-10-07] MEDS: MELATONIN 5 MG TABLETS PO SCH (23:05)
[2023-10-08] MEDS: hydrOXYzine PAMOATE 25 MG CAPSULE (FP) PO PRN (11:05)
[2023-10-08] MEDS: ACETAMINOPHEN 325 MG TABLET (FP) PO PRN (11:07)
[2023-10-08 11:35] LABS: HEMATOCRIT 41.1 % (35.4-49); HEMOGLOBIN 13.7 GM/dL (11.7-16.9); MCHC 33.2 g/dl (32.0-35.9); MEAN CELL VOLUME 93.3 fl (80-96); MEAN PLT VOLUME 8.9 fl (7.5-11.1); PLATELET COUNT 129 10^3/uL (134-434); RBC 4.41 M/mm3 (4.00-5.60); WHITE BLOOD COUNT 3.4 K/mm3 (4.0-10.0)
[2023-10-08 11:54] LABS: POTASSIUM 3.7 mmol/L (3.5-5.1)
[2023-10-08 12:19] LABS: CALCIUM 8.6 mg/dL (8.5-10.1)
[2023-10-08 12:20] LABS: ALBUMIN 3.4 g/dl (3.4-5.0); BLOOD UREA NITROGEN 20.1 mg/dL (7-18)
[2023-10-08 12:23] LABS: CREATININE 0.9 mg/dL (0.55-1.3)
[2023-10-08 12:24] LABS: BILIRUBIN,TOTAL 0.6 mg/dL (0.2-1); TOT PROT 6.9 g/dl (6.4-8.2)
[2023-10-08] MEDS: METHOCARBAMOL 500 MG TABLET PO PRN (22:33)
[2023-10-09] MEDS: diazePAM 5 MG TABLET PO SCH (05:53)
[2023-10-10] MEDS: diazePAM 5 MG TABLET PO SCH (06:00)
[2023-10-11] MEDS: diazePAM 5 MG TABLET PO ONE (05:49)
[2023-10-11 06:07] VITALS: RESP 16
[2023-10-11 09:30] VITALS: BP 123/69; PULSE 68; TEMP 97.7
== END 2023-10-11 10:46 | disposition home or self-care (01) | DRG 773 ==
LOC: YASAS 11:33 → Y3N 13:11
PROVIDERS: ADMIT Allergy & Immunology; ATTEND Surgery
PROC: HZ2ZZZZ Detoxification Services for Substance Abuse Treatment (ICD-10-PCS; principal; 2023-10-07)
DX: F11.23 Opioid dependence with withdrawal (principal); F10.230 Alcohol dependence with withdrawal, uncomplicated; F14.20 Cocaine dependence, uncomplicated; F16.10 Hallucinogen abuse, uncomplicated; F12.20 Cannabis dependence, uncomplicated; F17.210 Nicotine dependence, cigarettes, uncomplicated
CPT/HCPCS: 36415; 80053; 80305; 85027; 86780; 93005; 93010